=== PATIENT | male | born 1980 | race Two or more races ===

== ENCOUNTER 2017-12-10 10:44 | Emergency (ER) | payer MEDICAID ==
[2017-12-10 11:21] VITALS: TEMP 98
[2017-12-10 11:48] LABS: BASO % 0.4 % (0.0-2.0); EOS # 0.3 K/uL (0.0-0.7); EOS % 3.9 % (0.0-4.0); HEMOGLOBIN 13.1 g/dL (12.0-18.0); LYMPH # 1.9 K/uL (1.0-4.3); LYMPH % 21.3 % (20.0-40.0); MEAN CELL VOLUME 80.9 fl (80.0-94.0); MEAN CORPUSCULAR HEMOGLOBIN 27.8 pg (27.0-31.0); MEAN CORPUSCULAR HGB CONC 34.3 g/dL (33.0-37.0); MEAN PLATELET VOLUME 7.7 fl (7.2-11.7); MONO # 0.6 K/uL (0.0-0.8); MONO % 7.3 % (0.0-10.0); NEUT # 5.8 K/uL (1.8-7.0); NEUT % 67.1 % (50.0-75.0); RBC 4.7 Mil/uL (4.40-5.90); RED CELL DISTRIBUTION WIDTH 13.7 % (11.5-14.5); WHITE BLOOD COUNT 8.7 K/uL (4.8-10.8)
[2017-12-10 12:05] LABS: BLOOD UREA NITROGEN 10 mg/dl (9-20); CALCIUM 8.9 mg/dL (8.4-10.2); GFR NON-AFRICAN AMERICAN > 60
[2017-12-10 12:47] VITALS: O2SAT 98
--- NOTE | 2017-12-10 12:47 | ED PDOC ---
HPI: Psych/Substance Abuse Time Seen by Provider: 12/10/17 10:50 Chief Complaint (Nursing): Substance Abuse Chief Complaint (Provider): Altered Mental Status ED Caveat: Altered Mental Status History Per: EMS History/Exam Limitations: other (refuses to answer any questions and in shouting incoherently) Onset/Duration Of Symptoms: Days Current Symptoms Are (Timing): Still Present Associated Symptoms: Anger Additional Complaint(s): 37 year old male was brought to the ED by EMS and [place] department for altered mental status. [place] [address] . He is handcuffed to the stretcher and refuses to answer any questions and in shouting incoherently. EMS found small vial with brown liquid and unsure of the substance. Patient is combative and on 4 points restraint for protection and safety to self and others. There is no obvious sign of trauma on him. PMD: No Family Provider Past Medical History Reviewed: Historical Data, Nursing Documentation, Vital Signs Vital Signs: Last Vital Signs Temp 98 F 12/10/17 11:20 Pulse 85 12/10/17 12:00 Resp 19 12/10/17 12:00 BP 123/71 12/10/17 12:00 Pulse Ox 98 12/10/17 12:00 - Medical History PMH: No Chronic Diseases - Family History Family History: States: Unknown Family Hx - Allergies Allergies/Adverse Reactions: Allergies Allergy/AdvReac Type Severity Reaction Status Date / Time No Known Allergies Allergy Verified 12/10/17 10:45 Review of Systems Review Of Systems: ROS cannot be obtained secondary to pt's inabilty to answer questions. Physical Exam - Reviewed Nursing Documentation Reviewed: Yes Vital Signs Reviewed: Yes - Physical Exam Appears: Positive for: Non-toxic Head Exam: Positive for: ATRAUMATIC, NORMAL INSPECTION, NORMOCEPHALIC Skin: Positive for: Diaphoresis Eye Exam: Positive for: Other (pinpoint pupils bilateral) ENT: Positive for: Normal ENT Inspection Neck: Positive for: Normal Cardiovascular/Chest: Positive for: Regular Rate, Rhythm. Negative for: Murmur Respiratory: Positive for: Wheezing Gastrointestinal/Abdominal: Positive for: Normal Exam, Soft. Negative for: Tenderness, Guarding, Rebound Extremity: Negative for: Swelling Neurologic/Psych: Positive for: Other (pateint is sedated) - Laboratory Results Result Diagrams: 12/10/17 11:41 12/10/17 11:41 - ECG O2 Sat by Pulse Oximetry: 98 (RA) Pulse Ox Interpretation: Normal Medical Decision Making Medical Decision Making: Time: 1100 Initial Plan: --Alcohol serum --BMP --Urine Drug Screen --CBC w/ differential --Glucose, POC Routine --Ativan 2mg --Haldol 5mg --Instructor Product Inspection --1:1 Observation --Restraint: Violent or harm to self/ other as ordered --Reevaluation Workup ordered for altered mental status. Pt remains sedated and unresponsive to verbal stimuli. Pt with stable vitals on monitor. Pt to receive IV fluids. Will continue to monitor the patient and reassess. Utox pending pt urinating. Scribe Attestation: Documented by Kelvin Chavira, acting as a scribe for Lorraine Dickson MD Provider Scribe Attestation: All medical record entries made by the Scribe were at my direction and personally dictated by me. I have reviewed the chart and agree that the record accurately reflects my personal performance of the history, physical exam, medical decision making, and the department course for this patient. I have also personally directed, reviewed, and agree with the discharge instructions and disposition. Pt remains altered with minimal response to sternal rub. Will obtain CT Brain to rule out intracranial injury as history is still unclear. Pt remains stable on residential monitor. Pt now alert and oriented. He states he frequently takes drugs but does not remember what happened today. PT does not remember [place] [employer], being arrested, or why he was in [place]. Pt is able to provide the month and year, his home address, and his date of . [facility]ox screen tested positive for PCP and cannaboids. Pt eating food and denies any pain. CT brain has been canceled. Pt to be discharged home. Labs otherwise WNL. Disposition - Clinical Impression Clinical Impression: PCP (phencyclidine) abuse - Disposition Referrals: [facility] [Outside] [facility] [Outside] Disposition: Routine/Home Disposition Time: 18:47 Condition: IMPROVED Additional Instructions: Do not consume drugs or alcohol. Follow up with the mental health clinic for assistance in quitting drugs and alcohol. Increase water intake and rest for the next 24 hours. Follow up with primary medical doctor as needed. Instructions: Drug Abuse and Drug Addiction (DC) Forms: Differential (Estonian) Print Language: M[place]OCC[place]
[2017-12-10] MEDS ORDERED: Sodium Chloride 0.9% 1,000 ML IV ONE (15:43)
[2017-12-10 17:54] VITALS: PULSE 78; RESP 19
[2017-12-10 18:34] LABS: BARBITURATES, UR NEGATIVE (NEGATIVE); BENZODIAZEPINES, UR NEGATIVE (NEGATIVE); OPIATES, UR NEGATIVE (NEGATIVE); PHENCYCLIDINE, UR POSITIVE (NEGATIVE)
[2017-12-10 19:16] VITALS: BP 128/78
== END 2017-12-10 19:21 | disposition home or self-care (01) ==
LOC: H.ER 10:44
DX: F16.10 Hallucinogen abuse, uncomplicated (principal); R41.82 Altered mental status, unspecified
CPT/HCPCS: 80048; 80320; 80324; 80345; 80346; 80349; 80353; 80358; 80361; 82948; 83992; 85025; 96372; 99285; J1630; J2060; J7030